=== PATIENT | female | born 1980 | race African-American/Black ===

== ENCOUNTER 2017-05-11 01:51 | Emergency (ER) | payer BC, MEDICAID ==
--- NOTE | ~2017-05-11 | US63 ---
[facility] A Service of [facility] & [facility] RADIOLOGY TEXT RESULTS PATIENT: DULCE CASTANEDA LOCATION: [facility] : 84 UNIT #: [id number] AGE: [address]: Shantell Man APRN SEX: F ORDER DR: [id number] [facility] [address] [place], [place] [address] [id number] E MR#: [id number] Acc #: [id number] NAME: DULCE CASTANEDA : 1980 SEX: F STUDY DATE/TIME: 05/11/2017 6:32 UNIT: ANTHONY ROOM: STUDY DESCRIPTION: US /Mat >14Wk / Attending Physician: Shantell Man A.P.R.N. Ordering Physician: Shantell Man A.P.R.N. Primary Care Physician: Primary Care Physician No MEDICAL IMAGING REPORT This report is preliminary unless electronic signature is present EXAM Pelvic ultrasound INDICTIONS Vaginal bleeding for 1 day. Last menstrual period 01/01/2017. Positive beta HCG. Quantitative beta ECG not available at this time. G2, A1, P0. FINDINGS There is a single intrauterine . The estimated gestational age is 18 weeks and 4 days. There is a positive heart rate and positive motion. heart rate is measured at 150 beats per minute. Please note this is not an anatomic survey of the fetus. Volume of the amniotic fluid is within normal limits. There is a breech presentation of the fetus. Cervix is not well delineated from the transabdominal approach. There are 2 lesions in the lower uterine segment within the myometrium most consistent with fibroids. The largest measures up to 6.3 cm. The ovaries are not clearly identified. IMPRESSION 1. Limited pelvic ultrasound to evaluate for viability. 2. There is a live intrauterine with an estimated gestational age of around 18 weeks, 4 days. 3. Heterogeneous masses in the lower uterine segment measuring up to 6.3 cm. These have imaging appearance most typical for myometrial fibroids. Dictated by... Bhavik Joseph M.D. THIS IS AN ELECTRONICALLY VERIFIED REPORT Bhavik Joseph M.D. at 05/11/2017 8:03 AM Gaby[facility]kirby [facility] A Service of [facility] & [facility] RADIOLOGY TEXT RESULTS PATIENT: DULCE CASTANEDA LOCATION: [facility] #: [id number] : [birth year] UNIT #: [id number] AGE: [address]: Shantell Man APRN SEX: F ORDER DR: TD: 05/11/2017 07:44 JOB #: [id number] MEDICAL IMAGING REPORT Page 1 of 1 COPY
[2017-05-11 04:08] LABS: URINE SOURCE CLEAN CATCH
[2017-05-11 04:15] LABS: BASOPHIL% 0.2 % (0-2.5); EOSINOPHIL# 0.1 X10e3 (0-0.7); EOSINOPHIL% 1.2 % (0.0-7.0); HEMATOCRIT 30.7 % (35.0-45.0); HEMOGLOBIN 10.5 gm/dL (12.0-16.0); LYMPHOCYTE# 1.8 X10e3 (1.0-3.5); LYMPHOCYTE% 23.7 % (17.0-45.0); MEAN CELL VOLUME 88.5 FL (83-96); MEAN CORPUSCULAR HEMOGLOBIN 30.2 PG (28-34); MEAN CORPUSCULAR HGB CONC 34.1 g/dL (30-36); MEAN PLATELET VOLUME 9.6 FL (6.5-11.5); MONOCYTE# 0.5 X10e3 (0-1.0); MONOCYTE% 7.3 % (3.0-12.0); NEUTROPHIL% 67.6 % (40-75); PLATELET COUNT 202 X10e3 (140-420); RED BLOOD COUNT 3.47 X10e (3.90-5.30); RED CELL DISTRIBUTION WIDTH 14.3 % (11.0-15.5); WHITE BLOOD COUNT 7.5 X10e3 (4.0-10.5)
[2017-05-11 04:17] LABS: DIFF IND NO
[2017-05-11 04:23] LABS: URINE APPEARANCE CLEAR; URINE BILIRUBIN NEG (NEG); URINE BLOOD 2+ (NEG); URINE COLOR YELLOW; URINE GLUCOSE NEG (NEG); URINE KETONE NEG (NEG); URINE LEUKOCYTE ESTERASE NEG (NEG); URINE NITRATE NEG (NEG); URINE PH 7.5 (5-8); URINE PROTEIN NEG (NEG); URINE SPECIFIC GRAVITY 1.015 (1.003-1.035); URINE UROBILINOGEN 0.2 MG/DL (NEG)
[2017-05-11 04:26] LABS: U HYALINE CASTS AUWI 0-2 /[LPF]; URBCS1 AUWI 50-100 /[HPF] (0-2); URINE BACTERIA AUWI NEG (NEGATIVE); URINE SQUAMOUS EPITHELIAL CELL NONE SEEN /[HPF]; UWBCS1 AUWI 0-2 (0-5)
[2017-05-11 04:29] LABS: CULTURE INDICATED? NO
[2017-05-11 06:36] LABS: BUN/CREATININE RATIO 7.14; CALCIUM SERUM 8.9 mg/dL (8.4-10.2); CREATININE SERUM 0.7 mg/dL (0.6-1.4); POTASSIUM 3.8 mmol/L (3.5-5.1)
[2017-05-13 13:58] LABS: CHLAMYDIA TRACH Not Detected (Not Detected); N GONOR Not Detected (Not Detected)
== END 2017-05-11 15:14 | disposition home or self-care (01) ==
LOC: CED 01:51
PROVIDERS: Nurse Practitioner
DX: O20.0 Threatened abortion (principal); Z3A.18 18 weeks gestation of pregnancy
CPT/HCPCS: 36415; 76805; 80048; 81003; 84702; 84703; 85025; 86900; 86901; 87491; 87591; 87808; 87905; 99284